=== PATIENT | male | born 1965 | race Caucasian/White ===

== ENCOUNTER → 2024-02-04 12:39 | Outpatient (REF) | payer BC, SELFPAY | LOC: MRI 3T 12:39 | PROVIDERS: ATTENDING PHYSICIAN Registered Nurse | DX: D18.03 Hemangioma of intra-abdominal structures (principal) | CPT/HCPCS: 74183; A9581 ==

== ENCOUNTER → 2024-04-28 07:48 | Outpatient (REF) | payer BC, SELFPAY | LOC: REG 07:48 | PROVIDERS: ATTENDING PHYSICIAN Registered Nurse | DX: M79.672 Pain in left foot (principal) | CPT/HCPCS: 73630 ==

== ENCOUNTER → 2025-02-13 14:56 | Outpatient (REF) | payer OTHER, SELFPAY | LOC: MRI 14:56 | PROVIDERS: ATTENDING PHYSICIAN Internal Medicine; FAMILY PHYSICIAN Family Medicine | DX: K76.0 Fatty (change of) liver, not elsewhere classified (principal); R16.2 Hepatomegaly with splenomegaly, not elsewhere classified | CPT/HCPCS: 74181; 76391 ==